=== PATIENT | female | born 1975 | race Caucasian/White ===

== ENCOUNTER → 2017-05-21 08:47 | Outpatient (CLI) | payer OTHER, BC, SELFPAY ==
--- NOTE | 2017-05-21 08:50 | US_ITS ---
STUDY: ABDOMINAL ULTRASOUND - RIGHT UPPER QUADRANT REASON FOR VISIT: Female, 42 years old. Right upper quadrant pain. Intermittent for last 3 months. Worse the last 2 weeks. TECHNIQUE: Ultrasound evaluation of the right upper quadrant was performed with real-time and static fischer-scale imaging. TECHNICAL QUALITY: Adequate. COMPARISON: Comparison is made with prior examination October 30, 2010. FINDINGS: Liver: The liver measures 15.8 cm. There is normal echogenicity of the liver. The bile ducts are within normal limits. There is hepatic color flow. The direction of portal flow is hepatopetal. There is no demonstrated mass lesion. Gallbladder: Normal distended gallbladder. The gallbladder wall measures 2.2 mm. There is a positive sonographic Mckeon's sign. There is no pericholecystic fluid. There is a 1.1 cm x 0.9 cm x 0.7 cm gallstone in the neck of the gallbladder. Common Bile Duct (C.B.D.): The common bile duct measures 3.0 mm. Pancreas: Normal size of the head, body and tail of the pancreas. There is normal echogenicity of the pancreas. There is no demonstrated pancreatic mass or cyst. Right Kidney: Normal size of the right kidney. The right kidney measures 11.4 cm x 6.1 cm x 4.7 cm. Normal renal cortex. The right cortex measures 1.7 cm. There is no demonstrated renal mass or cyst. There is no right hydronephrosis. US/Gallbladder IMPRESSION: 1.1 cm x 0.9 cm x 0.7 cm gallstone in the neck of the gallbladder. There is a positive sonographic Mckeon's sign. Electronically Signed: Sal Hein MD at 13:29 EST Tel [phone], Service support ,
== END ==
PROVIDERS: Family Provider Nurse Practitioner; PCP Nurse Practitioner; Visit Provider Nurse Practitioner
DX: K80.80 Other cholelithiasis without obstruction (principal)
CPT/HCPCS: 76705

== ENCOUNTER 2017-06-03 05:25 | Day surgery (SDC) | payer OTHER, BC, SELFPAY ==
[2017-06-03] VITALS (7 sets, daily range): BP systolic 128–147; BP diastolic 75–95; PULSE 60–85; RESP 14–18; TEMP 36.3–37.6; O2SAT 94–100; BMI 30.7
--- NOTE | 2017-06-03 | GALL_PTH ---
PATIENT: MAGO FARNSWORTH [place] [facility] [place][id number] AGE/SX: 42/F ROOM: RE06/03/[address]: Dr. Ronnie Cardoza MD : [id number] BED: DIS: 06/03/2017 SPEC #: [id number] RECD: 06/03/17 09:09 STATUS: UMM JOSY #: [id number] AKUA: 06/03/17 00:[address]: Ronnie Cardoza DEPT: SURGICAL PATHOLOGY RECD BY: Ryan Tomlinson ENTERED: 06/03/17 09:09 SP TYPE: SUZAN GONCALVES DR: Mary Melgoza, BLENDER MACHINE OPERATOR-C Tissues: Gallbladder, NOS Procedures: Surgery Specimen Level III HEADER OPERATION: Laparoscopic cholecystectomy PRE-OP DIAGNOSIS: Calculus of gallbladder with chronic cholelithiasis without obstruction TISSUE SUBMITTED: Gallbladder MICROSCOPIC DIAGNOSIS Gallbladder, cholecystectomy: Cholesterolosis, chronic cholecystitis and cholelithiasis. AM:mary 06/04/17 MICROSCOPIC DESCRIPTION Slides are reviewed. GROSS DESCRIPTION Received is one container labeled with the patient's name and designated gallbladder. The specimen consists of a gallbladder measuring 8 cm in length and 3 cm in diameter. The external surface is pink-tsang, smooth and glistening for the most part. Focally it is granular, hemorrhagic and contains cautery artifact. The gallbladder contains green-yellow mucoid bile and one irregular yellowish-green stone measuring 1 cm in greatest dimension. The mucosa is bile-stained and without any mass lesions. The gallbladder wall measures up to 0.2 cm in thickness. The mucosa also shows several yellowish streaks consistent with cholesterolosis. Hair And Makeup Designer sections from the gallbladder and the cystic duct are submitted in one cassette. / SJ:mary 06/03/17 TC:3 CPT: 87213
--- NOTE | 2017-06-03 05:35 | EKG12_ITS ---
Test Reason : PRE OP Blood Pressure : / mmHG Vent. Rate : 070 BPM Atrial Rate : 070 BPM P-R Int : 152 ms QRS Dur : 084 ms QT Int : 382 ms P-R-T Axes : 035 033 027 degrees QTc Int : 412 ms Normal sinus rhythm Normal ECG No previous ECGs available Confirmed by BRYCE GAN, SHAYNA ([id number]), order editor FRANKI SCHULTZ ([id number]) on 06/04/2017 2:56:28 PM Referred By: Ronnie Cardoza Confirmed By:SHAYNA WU MD
[2017-06-03 05:44] LABS: Internal QC Validated? YES +Cl - CLEAR BKGD; Pregnancy, Urine Negative Negative
[2017-06-03] MEDS: Cefazolin 2 GM in 0.9% Normal Saline 100 ML IV (07:11)
--- NOTE | 2017-06-03 07:22 | OP.PCM_ITS ---
Problem List (1) Calculus of gallbladder with chronic cholecystitis without obstruction Status: Acute Report of Operation Date of Procedure: 06/03/17 Pre-Operative Diagnosis: k80.10 calculus of the gallbladder with chronic cholecystitis without obstruction Post-Operative Diagnosis: Same Surgery/Procedure Performed:: [id number] laparoscopic cholecystectomy Type of Anesthesia:: General Anesthesiologist: Ty Sena Specimen's removed: Gallbladder Description of Procedure: Patient was brought into the operating room placed in the supine position. Under excellent general endotracheal intubation the abdomen was sterilely prepped and draped in usual fashion. Local was injected infraumbilically. Dissection was carried down to the fascia. Fascia was grasped with a Danna. Varies needle was placed inside the abdomen. The abdomen was insufflated 15 torr. A 10/12 trocar was placed without difficulty. Patient was placed in the head up and rotated to the left position. A subxiphoid #5 trocar was placed, inferior to this another #5 trocar was placed, and laterally a #5 trocar was placed. All of these under direct visualization without injury to underlying structures. Fundus was grasped with a grasper and retracted in the cephalad direction. Moderate amount of adhesions were taken down from the gallbladder with use of electrocautery. I dissected out the cystic duct. I placed hemoclips proximally and distally and ligated the duct. I dissected out the cystic artery. I place hemoclips proximally distally ligated the duct. I deliver the gallbladder from the gallbladder bed with use of electrocautery I did use 1 more ligaclips for posterior branch of the cystic artery. I had excellent hemostasis. I placed a specimen a specimen bag and delivered through the umbilical port without difficulty. Reinspected the liver bed had good hemostasis all the fluid was retrieved. I remove the trochars under direct visualization. I closed the fascia the umbilical port with a [id number] stitch of 0 Vicryl. Skin incisions were closed with subcuticular stitches of 4- 0 Monocryl. Steri-Strips are applied sterile dressings were applied. Patient tolerated the procedure well. - Admit VTE Documentation VTE Present on Admission: No VTE Mechan Device Prophylaxis: SCD's VTE Pharm Prophylaxis ordered?: No Reason prophylaxis not ordered:: Treatment Not Indicated
--- NOTE | 2017-06-03 07:22 | PCM.DC.GB ---
Discharge Diet: Light diet - advance as tolerated Discharge Activity: May Not Drive - for 2-3 days or while taking narcotic pain medications., - - Do not drive, work heavy equipment or sign legal documents for 24 hours. May shower in (days): 1 - with the bandage in place. Additional Activity Instructions:: Pain medication may cause nausea. You should typically eat light foods as you take your pain medications. Pain medication may also cause constipation. If this is a problem for you, please discuss with your doctor. Call your doctor if your incision/area has: Continuous Slow Oozing, Sudden Increased Bleeding, Increased Pain/ Swelling, Increased Redness, Foul Smelling Discharge Call your doctor if you observe: Fever of 101 or Higher Suture Line Care: Avoid Pulling/Pushing, Avoid Pinching/Bending Additional Dressing/Incision Instructions:: Leave operative bandaids on for 2 days. When you remove dressing, leave Steri-Strips on until your follow-up appointment, or until the Steri-Strips fall off on their own. Allergies/Adverse Reactions: Allergies No Known Allergies Allergy (Verified 06/02/17 08:07) Medications to take at Discharge calcium carbonate 500 mg calcium (1,250 mg) chewable tablet 500 mg PO BID tab 05/31/17 esomeprazole magnesium 40 mg capsule,delayed release 40 mg PO QDAY cap 05/31/17 mometasone 100 mcg/actuation HFA aerosol inhaler 2 puff INHALATION Q12H 05/31/17 montelukast 10 mg tablet 10 mg PO QHS 05/31/17 multivitamin capsule 1 cap PO QDAY 05/31/17 norethindrone acetate 1 mg-ethinyl estradiol 20 mcg tablet 1 tab PO QDAY 05/31/17 Albuterol IH (ProAir) [Proair Hfa (SP)Vent Pts] 1 - 2 puff INHALATION Q6H PRN PRN 06/02/17 Primary Care Physician: Mary Melgoza [Primary Care Provider] - Please Follow Up With: Ronnie Cardoza MD - Please call [phone] to schedule an appointment. When: 7 days after your surgery.
[2017-06-03] MEDS: Bupivacaine Mpf 0.5% 30 ML VIAL (07:40)
[2017-06-03] MEDS: oxyCODONE 5 MG Tablet PO (09:41)
== END 2017-06-03 11:50 | disposition home or self-care (01) ==
LOC: SDC 05:26 → AC 05:28
PROVIDERS: Anesthesiology; Family Provider Nurse Practitioner; PCP Nurse Practitioner; Visit Provider Surgery
PROC: (CPT 47610; principal; 2017-06-03 06:55)
DX: K80.10 Calculus of gallbladder with chronic cholecystitis without obstruction (principal); K82.8 Other specified diseases of gallbladder; K21.9 Gastro-esophageal reflux disease without esophagitis; J45.909 Unspecified asthma, uncomplicated; E66.9 Obesity, unspecified; Z68.30 Body mass index [BMI] 30.0-30.9, adult; Z79.899 Other long term (current) drug therapy
CPT/HCPCS: 00790; 47562; 81025; 88304; 93005; J7120; J2405